=== PATIENT | male | born 1985 | race Caucasian/White ===

== ENCOUNTER 2019-04-20 14:35 | Inpatient (IN) | payer OTHER ==
[2019-04-20 17:36] VITALS: BMI 18.9
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
[2019-04-20] MEDS ORDERED: ACETAMINOPHEN 325 MG TABLET (FP) PO PRN ×2 (19:32)
[2019-04-20] MEDS ORDERED: hydrOXYzine PAMOATE 25 MG CAPSULE (FP) PO PRN (19:32)
[2019-04-20] MEDS ORDERED: METHOCARBAMOL 500 MG TABLET PO PRN (19:32)
[2019-04-20] MEDS ORDERED: IBUPROFEN 400 MG TABLET (FP) PO PRN (19:32)
[2019-04-20] MEDS ORDERED: MAGNESIUM HYDROX 2400MG/30ML ORAL SUSPENSION 30 ML CUP PO PRN (19:32)
[2019-04-20] MEDS ORDERED: MELATONIN 5 MG TABLETS PO PRN (19:32)
[2019-04-20] MEDS ORDERED: BISMUTH SUBSALICYLATE 524 MG/30 ML UD PO PRN (19:32)
[2019-04-20] MEDS ORDERED: MENTHOL/PHENOL 1 EACH UD MM PRN (19:32)
[2019-04-20] MEDS ORDERED: MAG HYDROX/AL HYDROX/SIMETH 30 ML UNIT-DOSE CUP PO PRN (19:32)
[2019-04-20] MEDS ORDERED: MAGNESIUM CITRATE 300 ML BOTTLE PO PRN (19:32)
[2019-04-20] MEDS ORDERED: METHADONE HCL 10 MG TABLET PO ONE (19:35)
[2019-04-20] MEDS: THIAMINE HCL 100 MG TABLET (FP) PO SCH (22:35)
[2019-04-20] MEDS: diazePAM 5 MG TABLET PO SCH (22:35)
[2019-04-21] MEDS: diazePAM 5 MG TABLET PO SCH ×3 (05:40→21:30)
[2019-04-21] MEDS ORDERED: METHADONE HCL 10 MG TABLET PO ONE (09:45)
[2019-04-21] MEDS ORDERED: METHADONE 40 MG, METHADONE 20 MG PO ONE (09:55)
[2019-04-21 10:43] LABS: HEMATOCRIT 35.5 % (35.4-49); HEMOGLOBIN 12.1 GM/dL (11.7-16.9); MCH 31.8 pg (25.7-33.7); MEAN CELL VOLUME 93.3 fl (80-96); MEAN PLT VOLUME 8.7 fl (7.5-11.1); PLATELET COUNT 298 K/MM3 (134-434); RDW 12.4 % (11.9-15.9); WHITE BLOOD COUNT 9.4 K/mm3 (4.0-10.0)
[2019-04-21 10:52] LABS: ALBUMIN 3.3 g/dl (3.4-5.0); BILIRUBIN,TOTAL 0.5 mg/dL (0.2-1); BLOOD UREA NITROGEN 10.4 mg/dL (7-18); CALCIUM 8.6 mg/dL (8.5-10.1); CREATININE 0.8 mg/dL (0.55-1.3); POTASSIUM 4.2 mmol/L (3.5-5.1); TOT PROT 6.1 g/dl (6.4-8.2)
[2019-04-21] MEDS ORDERED: METHADONE HCL 10 MG TABLET ONE (11:05)
[2019-04-21] MEDS: PRENATAL VITAMINS W/ FOLIC ACID TABLET (FP) PO SCH (11:06)
[2019-04-21] MEDS ORDERED: METHADONE HCL 40 MG DISPERSABLE TABLET ONE (11:06)
--- NOTE | 2019-04-21 11:40 | PN ---
S CIWA - CIWA Score Nausea/Vomitin-No Nausea/No Vomiting Muscle Tremors: 4-Moderate,w/Arms Extend Anxiety: 3 Agitation: 3 Paroxysmal Sweats: 3 Orientation: 0-Oriented Tacttile Disturbances: 0-None Auditory Disturbances: 0-None Visual Disturbances: 0-None Headache: 0-None Present CIWA-Ar Total Score: 13 [facility] Progress Note (SOAP) Subjective: sweats shakes tired weak restless anxiety Objective: 04/21/19 11:40 Vital Signs Temperature 97.4 F L 04/21/19 11:03 Pulse Rate 68 04/21/19 11:03 Respiratory Rate 18 04/21/19 11:03 Blood Pressure 106/66 04/21/19 11:03 O2 Sat by Pulse Oximetry (%) Laboratory Tests 04/21/19 04/21/19 08:30 08:30 WBC 9.4 RBC 3.80 L Hgb 12.1 Hct 35.5 MCV 93.3 MCH 31.8 MCHC 34.0 RDW 12.4 Plt Count 298 MPV 8.7 Sodium 139 Potassium 4.2 Chloride 105 Carbon Dioxide 28 Anion Gap 6 L BUN 10.4 Creatinine 0.8 Est GFR (CKD-EPI)AfAm 136.99 Est GFR (CKD-EPI)NonAf 118.20 Random Glucose 72 L Calcium 8.6 Total Bilirubin 0.5 AST 19 ALT 20 Alkaline Phosphatase 95 Total Protein 6.1 L Albumin 3.3 L labs noted aaox3 lying in bed no acute distress Assessment: 04/21/19 11:41 withdrawals Plan: continue detox pt will remain with taking 60mg of his methadone maintenance until he goes back to his program for re-instatement and they will then build him up. pt in agreement as well.
[2019-04-21] MEDS: NICOTINE 21 MG/24 HOURS TOPICAL PATCH TD SCH (12:06)
[2019-04-21] MEDS: NICOTINE POLACRILEX 4 MG GUM BUC PRN ×2 (12:06→21:32)
[2019-04-21] MEDS: THIAMINE HCL 100 MG TABLET (FP) PO SCH (21:31)
[2019-04-22] MEDS ORDERED: METHADONE HCL 10 MG TABLET ONE (05:04)
[2019-04-22] MEDS ORDERED: METHADONE HCL 40 MG DISPERSABLE TABLET ONE (05:04)
[2019-04-22] MEDS: METHADONE 40 MG, METHADONE 20 MG PO SCH (05:46)
[2019-04-22] MEDS: diazePAM 5 MG TABLET PO SCH ×2 (05:46→18:11)
[2019-04-22] MEDS ORDERED: METHADONE HCL 40 MG DISPERSABLE TABLET PO SCH (06:00)
--- NOTE | 2019-04-22 09:09 | PN ---
[facility] CIWA - CIWA Score Nausea/Vomitin-No Nausea/No Vomiting Muscle Tremors: 3 Anxiety: 3 Agitation: 3 Paroxysmal Sweats: 2 Orientation: 0-Oriented Tacttile Disturbances: 0-None Auditory Disturbances: 0-None Visual Disturbances: 0-None Headache: 0-None Present CIWA-Ar Total Score: 11 S Progress Note (SOAP) Subjective: sweats agitation interrupted sleep my right pinki finger is infected Objective: 04/22/19 09:21 Vital Signs Temperature 96.2 F L 04/22/19 06:41 Pulse Rate 67 04/22/19 06:41 Respiratory Rate 18 04/22/19 06:41 Blood Pressure 107/58 L 04/22/19 06:41 O2 Sat by Pulse Oximetry (%) Laboratory Tests 04/21/19 04/21/19 04/21/19 08:30 08:30 08:30 WBC 9.4 RBC 3.80 L Hgb 12.1 Hct 35.5 MCV 93.3 MCH 31.8 MCHC 34.0 RDW 12.4 Plt Count 298 MPV 8.7 Sodium 139 Potassium 4.2 Chloride 105 Carbon Dioxide 28 Anion Gap 6 L BUN 10.4 Creatinine 0.8 Est GFR (CKD-EPI)AfAm 136.99 Est GFR (CKD-EPI)NonAf 118.20 Random Glucose 72 L Calcium 8.6 Total Bilirubin 0.5 AST 19 ALT 20 Alkaline Phosphatase 95 Total Protein 6.1 L Albumin 3.3 L RPR Titer Nonreactive pt is aaox3 ambulating no acute distress Assessment: 04/22/19 09:22 mild withdrawals finger assessed; pinki area near nail bed is swollen, pus like formed under skin noted. Plan: continue detox increase fluids bacitrain oint ordered bactrium ds bid x 7 days ordered encouraged warm compress prn
[2019-04-22] MEDS: SULFAMETHOXAZOLE/TRIMETHOPRIM 800MG/160MG D.S. TABLET PO SCH ×2 (10:44→22:13)
[2019-04-22] MEDS: BACITRACIN 15 GM TUBE TOPICAL OINTMENT TP SCH (10:44)
[2019-04-22] MEDS: PRENATAL VITAMINS W/ FOLIC ACID TABLET (FP) PO SCH (10:44)
[2019-04-22] MEDS: NICOTINE 21 MG/24 HOURS TOPICAL PATCH TD SCH (10:45)
[2019-04-22] MEDS: NICOTINE POLACRILEX 4 MG GUM BUC PRN (10:47)
[2019-04-22] MEDS: THIAMINE HCL 100 MG TABLET (FP) PO SCH (22:13)
[2019-04-22] MEDS: diazePAM 5 MG TABLET PO PRN (22:13)
[2019-04-23] MEDS ORDERED: METHADONE HCL 10 MG TABLET ONE (04:56)
[2019-04-23] MEDS ORDERED: METHADONE HCL 40 MG DISPERSABLE TABLET ONE (04:57)
[2019-04-23] MEDS: METHADONE 40 MG, METHADONE 20 MG PO SCH (05:38)
[2019-04-23] MEDS ORDERED: diazePAM 5 MG TABLET PO ONE (06:00)
[2019-04-23] MEDS: SULFAMETHOXAZOLE/TRIMETHOPRIM 800MG/160MG D.S. TABLET PO SCH (10:30)
[2019-04-23] MEDS: PRENATAL VITAMINS W/ FOLIC ACID TABLET (FP) PO SCH (10:30)
[2019-04-23] MEDS: NICOTINE 21 MG/24 HOURS TOPICAL PATCH TD SCH (10:31)
[2019-04-23] MEDS: BACITRACIN 15 GM TUBE TOPICAL OINTMENT TP SCH (10:31)
[2019-04-23] MEDS: NICOTINE POLACRILEX 4 MG GUM BUC PRN (10:32)
[2019-04-23] MEDS: diazePAM 5 MG TABLET PO PRN (12:16)
[2019-04-23 12:51] VITALS: BP 118/71; PULSE 89; TEMP 99.5
--- NOTE | 2019-04-23 13:15 | PN ---
[facility] Progress Note Note: this morning infected pinki assessed and pt was encouraged to go to our main hospital for further check up or even for MD to ID(khang) the pus forming under skin; however pt refused and states this has happened many times before to me and I just wait and the pus will eventually break through skin. Pt denies of any fever only some pain/discomfort to pinki area. Pt is currently on ABX and encouraged warm compress to area.
--- NOTE | 2019-04-23 13:18 | PN ---
S CIWA - CIWA Score Nausea/Vomitin-No Nausea/No Vomiting Muscle Tremors: 2 Anxiety: 2 Agitation: 2 Paroxysmal Sweats: No Perspiration Orientation: 0-Oriented Tacttile Disturbances: 0-None Auditory Disturbances: 0-None Visual Disturbances: 0-None Headache: 0-None Present CIWA-Ar Total Score: 6 [facility] Progress Note (SOAP) Subjective: agitation sweats pain to pinki right hand Objective: 04/23/19 13:17 Vital Signs Temperature 99.5 F 04/23/19 12:50 Pulse Rate 89 04/23/19 12:50 Respiratory Rate 18 04/23/19 12:50 Blood Pressure 118/71 04/23/19 12:50 O2 Sat by Pulse Oximetry (%) Laboratory Tests 04/21/19 04/21/19 04/21/19 08:30 08:30 08:30 WBC 9.4 RBC 3.80 L Hgb 12.1 Hct 35.5 MCV 93.3 MCH 31.8 MCHC 34.0 RDW 12.4 Plt Count 298 MPV 8.7 Sodium 139 Potassium 4.2 Chloride 105 Carbon Dioxide 28 Anion Gap 6 L BUN 10.4 Creatinine 0.8 Est GFR (CKD-EPI)AfAm 136.99 Est GFR (CKD-EPI)NonAf 118.20 Random Glucose 72 L Calcium 8.6 Total Bilirubin 0.5 AST 19 ALT 20 Alkaline Phosphatase 95 Total Protein 6.1 L Albumin 3.3 L RPR Titer Nonreactive aaox3 ambulating no acute distress Assessment: 04/23/19 13:17 withdrawals Plan: continue detox increase fluids continue with ABX as ordered d/c in am
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
== END 2019-04-23 15:00 | disposition home or self-care (01) | DRG 773 ==
LOC: YASAS 14:35 → Y6N 19:35
PROVIDERS: ADMIT Surgery; ATTEND Surgery
PROC: HZ2ZZZZ Detoxification Services for Substance Abuse Treatment (ICD-10-PCS; principal; 2019-04-20)
DX: F13.230 Sedative, hypnotic or anxiolytic dependence with withdrawal, uncomplicated (principal); F11.20 Opioid dependence, uncomplicated; F43.10 Post-traumatic stress disorder, unspecified; L08.9 Local infection of the skin and subcutaneous tissue, unspecified; Z87.828 Personal history of other (healed) physical injury and trauma; Z91.013 Allergy to seafood
CPT/HCPCS: 36415; 80053; 85027; 86593

== ENCOUNTER 2020-01-25 16:21 | Inpatient (IN) | payer OTHER ==
--- NOTE | 2020-01-25 17:08 | HP ---
COWS - Scale Resting Pulse: 0= [place] 80 or Below Sweatin= Chills/Flushing Restless Observation: 1= Difficult to Sit Still Pupil Size: 1= Pupils >than Normal Bone or Joint Aches: 2= Severe Diffuse Aches Runny Nose/ Eye Tearin= Runny Nose/Eyes GI Upset > 30mins: 2= Nausea/Diarrhea Tremor Observation: 2= Slight Tremor Visible Yawning Observation: 1= 1-2x During Session Anxiety or Irritability: 1=Feels Anxious/Irritable Goose Flesh Skin: 3=Piloerection COWS Score: 16 CIWA Score - Admission Criteria OASAS Guidelines: Admission for Medically Managed Detox: Requires at least one of the followin. CIWA greater than 12 2. Seizures within the past 24 hours 3. Delirium tremens within the past 24 hours 4. Hallucinations within the past 24 hours 5. Acute intervention needed for co occurring medical disorder 6. Acute intervention needed for co occurring psychiatric disorder 7. Severe withdrawal that cannot be handled at a lower level of care (continued vomiting, continued diarrhea, abnormal vital signs) requiring intravenous medication and/or fluids 8. Admitting History and Physical - Past Medical History Pulmonary: Yes: Asthma - Smoking History Smoking history: Current every day smoker Have you smoked in the past 12 months: Yes Aproximately how many cigarettes per day: 40 - Alcohol/Substance Use History of Substance Use: reports: Heroin, Marijuana, Prescription Date of Last Use: 11/29/19 - Social History ADL: Independent Occupation: unemployed History of Recent Travel: No Admission ROS [facility] Chief Complaint: I am going through withdrawal, I dont want to use drugs no more Allergies/Adverse Reactions: Allergies Allergy/AdvReac Type Severity Reaction Status Date / Time Fish Containing Products Allergy Verified 12/05/19 13:18 No Known Drug Allergies Allergy Verified 12/05/19 13:18 shellfish derived Allergy Verified 12/05/19 13:18 seafoods Allergy Unknown Uncoded 12/05/19 13:18 History of Present Illness: 34 year old male with heroine use presents for detox. His last treatment was initiated on 12/01/19 with completion of detox and a few days in rehab. Exam Limitations: No Limitations - Ebola screening Have you had contact with anyone from an Ebola affected area: No Have you been sick,other than usual withdrawal symptoms: No Do you have a fever: No - Review of Systems Constitutional: Chills, Loss of Appetite, Changes in sleep EENT: reports: Blurred Vision, Nose Congestion, Dental Problems Respiratory: reports: No Symptoms reported Cardiac: reports: No Symptoms Reported GI: reports: Nausea, Poor Appetite, Abdominal cramping : reports: No Symptoms Reported Musculoskeletal: reports: Joint Pain, Muscle Pain, Muscle Weakness Neuro: reports: Numbness, Seizure (4 months ago), Tingling, Tremors Endocrine: reports: No Symptoms Reported Hematology: reports: Anemia Psychiatric: reports: Anxious, Depressed, other (PTSD) Other Systems: Reviewed and Negative Patient History - Patient Medical History Hx Anemia: No Hx Asthma: Yes (takes ablbuterol inhaler) Hx Chronic Obstructive Pulmonary Disease (COPD): No Hx Cancer: No Hx Cardiac Disorders: No Hx Congestive Heart Failure: No Hx Hypertension: No Hx Hypercholesterolemia: No Hx Pacemaker: No HX Cerebrovascular Accident: No Hx Seizures: No Hx Dementia: No Hx Diabetes: No Hx Gastrointestinal Disorders: No Hx Liver Disease: No Hx Genitourinary Disorders: No Hx Sexually Transmitted Disorders: No Hx Renal Disease (ESRD): No Hx Thyroid Disease: No Hx Human Immunodeficiency Virus (HIV): No Hx Hepatitis C: No Hx Depression: Yes Hx Suicide Attempt: No Hx Bipolar Disorder: No Hx Schizophrenia: No Other Medical History: PTSD - Patient Surgical History Past Surgical History: Yes Hx Neurologic Surgery: No Hx Cataract Extraction: No Hx Cardiac Surgery: No Hx Lung Surgery: No Hx Breast Surgery: No Hx Breast Biopsy: No Hx Abdominal Surgery: Yes ([facility] 2011) Hx Appendectomy: No Hx Cholecystectomy: No Hx Genitourinary Surgery: No Hx Section: No Hx Orthopedic Surgery: No Anesthesia Reaction: No - PPD History Previous Implant?: Yes Documented Results: Negative w/proof Implanted On Prior [facility] Admission?: Yes Date: 12/03/19 Results: 0 mm. PPD to be Administered?: No - Smoking Cessation Smoking history: Current every day smoker Have you smoked in the past 12 months: Yes Aproximately how many cigarettes per day: 40 Cigars Per Day: 0 Hx Chewing Tobacco Use: No Initiated information on smoking cessation: Yes 'Breaking Loose' booklet given: 01/25/20 - Substance & Tx. History Hx Alcohol Use: No Substance Use Type: Heroin - Substances abused Heroin Substance route: Smoking Frequency: Daily Amount used: 20 bags Age of first use: 23 Date of last use: 01/24/20 Admission Physical Exam [facility] - Physical General Appearance: Yes: Disheveled (unkempt), Irritable, Anxious HEENTM: Yes: Hearing grossly Normal, Normocephalic, Normal Voice Respiratory: Yes: Chest Non-Tender, Lungs Clear, Normal Breath Sounds, No Respiratory Distress, No Accessory Muscle Use Neck: Yes: No masses,lesions,Nodules, Supple Breast: Yes: Breast Exam Deferred Cardiology: Yes: Regular Rhythm, Regular Rate, S1, S2 Abdominal: Yes: Normal Bowel Sounds, Non Tender, Soft, Surgical Scar Genitourinary: Yes: Within Normal Limits Back: Yes: Normal Inspection Musculoskeletal: Yes: Gait Steady, Muscle Pain, Muscle weakness Extremities: Yes: Tremors, Other (tender finger tips, dirty) Neurological: Yes: Alert, Normal Mood/Affect, Normal Response Integumentary: Yes: Clammy, Rash Lymphatic: Yes: Within Normal Limits - Diagnostic (1) Opioid dependence with withdrawal Current Visit: Yes Status: Acute (2) Nicotine dependence Current Visit: Yes Status: Chronic Qualifiers: Nicotine product type: cigarettes Substance use status: uncomplicated Qualified Code(s): F17.210 - Nicotine dependence, cigarettes, uncomplicated Cleared for Admission [facility] - Detox or Rehab [facility] Level of Care: Medically Managed Detox Regimen/Protocol: Methadone Claeared for Rehab Admission: No Breathalyzer - Breathalyzer Breathalyzer: 0 Urine Drug Screen - Test Device Lot number: [id number] Expiration date: 03/29/21 - Control Is test valid?: Yes - Results Drug screen NEGATIVE: No Urine drug screen results: THC-Marijuana, VLADIMIR-Cocaine, AMP-Amphetamines, FEN- Fentanyl, MOP-Opiates, OXY-Oxycodone, MTD-Methadone, MDMA-Ecstasy, BUP-Suboxone Inpatient Rehab Admission - Rehab Decision to Admit Inpatient rehab admission?: No
[2020-01-25] MEDS ORDERED: MAG HYDROX/AL HYDROX/SIMETH 30 ML UNIT-DOSE CUP PO PRN (17:15)
[2020-01-25] MEDS ORDERED: IBUPROFEN 400 MG TABLET (FP) PO PRN (17:15)
[2020-01-25] MEDS ORDERED: NALOXONE HCL 0.4 MG/ML VIAL IM PRN (17:15)
[2020-01-25] MEDS ORDERED: cloNIDine HCL 0.1 MG TABLET PO PRN (17:15)
[2020-01-25] MEDS ORDERED: MENTHOL/PHENOL 1 EACH UD MM PRN (17:15)
[2020-01-25] MEDS ORDERED: MAGNESIUM HYDROX 2400MG/30ML ORAL SUSPENSION 30 ML CUP PO PRN (17:15)
[2020-01-25] MEDS ORDERED: ACETAMINOPHEN 325 MG TABLET (FP) PO PRN ×2 (17:15)
[2020-01-25] MEDS ORDERED: MAGNESIUM CITRATE 300 ML BOTTLE PO PRN (17:15)
[2020-01-25] MEDS ORDERED: BISMUTH SUBSALICYLATE 524 MG/30 ML UD PO PRN (17:15)
[2020-01-25 18:19] VITALS: BMI 20.2
[2020-01-25] MEDS ORDERED: ALBUTEROL SO4 HFA INHALER IH PRN (18:19)
[2020-01-25] MEDS ORDERED: METHADONE HCL 10 MG TABLET (FOR DETOX USE ONLY) PO ONE (18:45)
[2020-01-25] MEDS: NICOTINE POLACRILEX 2 MG GUM BUC PRN (19:31)
[2020-01-25] MEDS ORDERED: MELATONIN 5 MG TABLETS PO SCH (22:00)
[2020-01-25] MEDS: THIAMINE HCL 100 MG TABLET (FP) PO SCH (22:06)
[2020-01-25] MEDS: TOLNAFTATE 1% POWDER 45 GM POW TP SCH (23:42)
[2020-01-26] MEDS: METHOCARBAMOL 500 MG TABLET PO PRN ×2 (00:44→10:14)
[2020-01-26] MEDS ORDERED: METHADONE HCL 5 MG TABLET (FOR DETOX USE ONLY) ONE (09:09)
[2020-01-26] MEDS ORDERED: METHADONE HCL 10 MG TABLET (FOR DETOX USE ONLY) ONE (09:09)
[2020-01-26] MEDS ORDERED: METHADONE (DETOX) 20 MG, METHADONE (DETOX) 5 MG PO ONE (10:00)
[2020-01-26] MEDS: NICOTINE 14 MG/24 HOURS TOPICAL PATCH TD SCH (10:11)
[2020-01-26] MEDS: PRENATAL VITAMINS W/ FOLIC ACID TABLET (FP) PO SCH (10:11)
[2020-01-26] MEDS: NICOTINE POLACRILEX 2 MG GUM BUC PRN ×4 (10:12→22:15)
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
[2020-01-26] MEDS: TOLNAFTATE 1% POWDER 45 GM POW TP SCH ×2 (10:34→22:48)
--- NOTE | 2020-01-26 10:35 | PN ---
[facility] COWS - Scale Resting Pulse: 0= [place] 80 or Below Sweatin= Chills/Flushing Restless Observation: 1= Difficult to Sit Still Pupil Size: 0= Normal to Room Light Bone or Joint Aches: 2= Severe Diffuse Aches Runny Nose/ Eye Tearin= Runny Nose/Eyes GI Upset > 30mins: 1= Stomach Cramp Tremor Observation of Outstretched Hands: 2= Slight Tremor Visible Yawning Observation: 2= >3x During Session Anxiety or Irritability: 2=Irritable/Anxious Goose Flesh Skin: 0=Smooth Skin COWS Score: 13 [facility] Progress Note (SOAP) Subjective: sweats shakes body aches interrupted sleep poor appetite cut to my fingers from doing meth insomnia Objective: 01/26/20 10:32 Vital Signs Temperature 97.8 F 01/26/20 09:10 Pulse Rate 58 L 01/26/20 10:12 Respiratory Rate 18 01/26/20 09:10 Blood Pressure 102/59 L 01/26/20 10:12 O2 Sat by Pulse Oximetry (%) 97 01/26/20 06:10 labs pending aaox3 lying in bed no acute distress Assessment: 01/26/20 10:33 withdrawals fingers assessed; superficial abrasions noted to finger. bacitracin oint ordered Plan: continue detox increase fluids bacitracin ointment ordered ensure plus bid
[2020-01-26 11:34] LABS: HEMATOCRIT 32.5 % (35.4-49); MCH 31.9 pg (25.7-33.7); MCHC 33.7 g/dl (32.0-35.9); MEAN CELL VOLUME 94.4 fl (80-96); MEAN PLT VOLUME 9.5 fl (7.5-11.1); PLATELET COUNT 263 K/MM3 (134-434); RBC 3.44 M/mm3 (4.00-5.60); WHITE BLOOD COUNT 5.5 K/mm3 (4.0-10.0)
[2020-01-26 11:46] LABS: ALBUMIN 3.6 g/dl (3.4-5.0); BILIRUBIN,TOTAL 1.4 mg/dL (0.2-1); BLOOD UREA NITROGEN 11.4 mg/dL (7-18); CALCIUM 8.7 mg/dL (8.5-10.1); CREATININE 0.9 mg/dL (0.55-1.3); TOT PROT 6.4 g/dl (6.4-8.2)
[2020-01-26] MEDS: BACITRACIN 0.9 GM PACKET TP SCH ×2 (12:01→22:12)
[2020-01-26] MEDS: diazePAM 5 MG TABLET PO PRN ×2 (15:32→22:12)
[2020-01-26] MEDS: THIAMINE HCL 100 MG TABLET (FP) PO SCH (22:12)
[2020-01-27] MEDS ORDERED: METHADONE HCL 10 MG TABLET (FOR DETOX USE ONLY) PO ONE (10:00)
[2020-01-27] MEDS: NICOTINE 14 MG/24 HOURS TOPICAL PATCH TD SCH (10:11)
[2020-01-27] MEDS: NICOTINE POLACRILEX 2 MG GUM BUC PRN ×2 (10:11→12:40)
[2020-01-27] MEDS: TOLNAFTATE 1% POWDER 45 GM POW TP SCH ×2 (10:12→22:29)
[2020-01-27] MEDS: PRENATAL VITAMINS W/ FOLIC ACID TABLET (FP) PO SCH (10:12)
[2020-01-27] MEDS: BACITRACIN 0.9 GM PACKET TP SCH ×2 (10:12→22:28)
--- NOTE | 2020-01-27 10:43 | PN ---
BHS COWS - Scale Resting Pulse: 0= [place] 80 or Below Sweatin= Chills/Flushing Restless Observation: 1= Difficult to Sit Still Pupil Size: 0= Normal to Room Light Bone or Joint Aches: 2= Severe Diffuse Aches Runny Nose/ Eye Tearin= Nasal Congestion GI Upset > 30mins: 0= None Tremor Observation of Outstretched Hands: 1= Tremor [place], Not Seen Yawning Observation: 1= 1-2x During Session Anxiety or Irritability: 1=Feels Anxious/Irritable Goose Flesh Skin: 0=Smooth Skin COWS Score: 8 BHS Progress Note (SOAP) Subjective: sweats body aches chills tired interrupted sleep Objective: 01/27/20 10:42 Vital Signs Temperature 97.8 F 01/27/20 05:47 Pulse Rate 58 L 01/27/20 05:47 Respiratory Rate 16 01/27/20 06:24 Blood Pressure 100/58 L 01/27/20 05:47 O2 Sat by Pulse Oximetry (%) 96 01/27/20 05:47 Laboratory Tests 01/26/20 01/26/20 01/26/20 08:15 08:15 08:15 WBC 5.5 RBC 3.44 L Hgb 11.0 L Hct 32.5 L MCV 94.4 MCH 31.9 MCHC 33.7 RDW 12.0 Plt Count 263 MPV 9.5 Sodium 139 Potassium 4.0 Chloride 104 Carbon Dioxide 28 Anion Gap 7 L BUN 11.4 Creatinine 0.9 Est GFR (CKD-EPI)AfAm 130.52 Est GFR (CKD-EPI)NonAf 112.62 Random Glucose 82 Calcium 8.7 Total Bilirubin 1.4 H AST 14 L ALT 18 Alkaline Phosphatase 68 Total Protein 6.4 Albumin 3.6 Syphilis Serology Non-reactive labs noted mildly low H:H noted aaox3 ambulating no acute distress Assessment: 01/27/20 10:50 withdrawals Plan: continue detox iron supplement ordered increase fluids
[2020-01-27] MEDS: FERROUS SO4 325 MG TABLET (FP) PO SCH ×2 (10:59→22:29)
[2020-01-27] MEDS: diazePAM 5 MG TABLET PO PRN ×2 (12:39→17:30)
[2020-01-27] MEDS ORDERED: MASKS NR ONE (19:41)
[2020-01-27] MEDS: THIAMINE HCL 100 MG TABLET (FP) PO SCH (22:29)
[2020-01-28] MEDS: NICOTINE POLACRILEX 2 MG GUM BUC PRN ×3 (08:56→14:53)
[2020-01-28] MEDS ORDERED: METHADONE HCL 5 MG TABLET (FOR DETOX USE ONLY) ONE (09:00)
[2020-01-28] MEDS ORDERED: METHADONE HCL 10 MG TABLET (FOR DETOX USE ONLY) ONE (09:00)
[2020-01-28] MEDS ORDERED: METHADONE (DETOX) 10 MG, METHADONE (DETOX) 5 MG PO ONE (10:00)
[2020-01-28] MEDS: FERROUS SO4 325 MG TABLET (FP) PO SCH ×2 (10:07→21:02)
[2020-01-28] MEDS: BACITRACIN 0.9 GM PACKET TP SCH ×2 (10:07→21:03)
[2020-01-28] MEDS: PRENATAL VITAMINS W/ FOLIC ACID TABLET (FP) PO SCH (10:08)
[2020-01-28] MEDS: TOLNAFTATE 1% POWDER 45 GM POW TP SCH ×2 (10:08→21:04)
[2020-01-28] MEDS: NICOTINE 14 MG/24 HOURS TOPICAL PATCH TD SCH (10:08)
--- NOTE | 2020-01-28 10:25 | PN ---
BHS COWS - Scale Resting Pulse: 0= [place] 80 or Below Sweatin= Chills/Flushing Restless Observation: 1= Difficult to Sit Still Pupil Size: 0= Normal to Room Light Bone or Joint Aches: 1= Mild Discomfort Runny Nose/ Eye Tearin= Nasal Congestion GI Upset > 30mins: 1= Stomach Cramp Tremor Observation of Outstretched Hands: 0= None Yawning Observation: 1= 1-2x During Session Anxiety or Irritability: 1=Feels Anxious/Irritable Goose Flesh Skin: 0=Smooth Skin COWS Score: 7 BHS Progress Note (SOAP) Subjective: stomach cramping sweats chills body aches Objective: 01/28/20 10:24 Vital Signs Temperature 97.9 F 01/28/20 08:44 Pulse Rate 64 01/28/20 08:44 Respiratory Rate 20 01/28/20 08:44 Blood Pressure 108/56 L 01/28/20 08:44 O2 Sat by Pulse Oximetry (%) 96 01/28/20 05:50 aaox3 ambulating no acute distress Assessment: 01/28/20 10:25 withdrawals Plan: continue detox roboxin pnr
[2020-01-28] MEDS: diazePAM 5 MG TABLET PO PRN ×2 (12:34→17:49)
[2020-01-28] MEDS: THIAMINE HCL 100 MG TABLET (FP) PO SCH (21:02)
[2020-01-28] MEDS: SUVOREXANT 10 MG TABLET PO PRN (21:05)
[2020-01-29] MEDS ORDERED: METHADONE HCL 10 MG TABLET (FOR DETOX USE ONLY) PO ONE (10:00)
[2020-01-29] MEDS: BACITRACIN 0.9 GM PACKET TP SCH ×2 (10:21→21:33)
[2020-01-29] MEDS: FERROUS SO4 325 MG TABLET (FP) PO SCH ×2 (10:21→21:33)
[2020-01-29] MEDS: PRENATAL VITAMINS W/ FOLIC ACID TABLET (FP) PO SCH (10:22)
[2020-01-29] MEDS: NICOTINE 14 MG/24 HOURS TOPICAL PATCH TD SCH (10:22)
[2020-01-29] MEDS: TOLNAFTATE 1% POWDER 45 GM POW TP SCH (10:22)
[2020-01-29] MEDS: NICOTINE POLACRILEX 2 MG GUM BUC PRN ×3 (10:24→19:49)
[2020-01-29] MEDS: diazePAM 5 MG TABLET PO PRN (10:25)
--- NOTE | 2020-01-29 11:17 | PN ---
BHS COWS - Scale Resting Pulse: 0= [place] 80 or Below Sweatin= Chills/Flushing Restless Observation: 1= Difficult to Sit Still Pupil Size: 0= Normal to Room Light Bone or Joint Aches: 1= Mild Discomfort Runny Nose/ Eye Tearin= None GI Upset > 30mins: 0= None Tremor Observation of Outstretched Hands: 1= Tremor [place], Not Seen Yawning Observation: 1= 1-2x During Session Anxiety or Irritability: 0= None Goose Flesh Skin: 0=Smooth Skin COWS Score: 5 BHS Progress Note (SOAP) Subjective: irritable sweats chills Objective: 01/29/20 11:17 Vital Signs Temperature 97.3 F L 01/29/20 08:45 Pulse Rate 70 01/29/20 08:45 Respiratory Rate 18 01/29/20 08:45 Blood Pressure 123/61 01/29/20 08:45 O2 Sat by Pulse Oximetry (%) 97 01/29/20 05:57 aaox3 ambulating no acute distress Assessment: 01/29/20 11:17 withdrawals Plan: continue detox d/c in am
[2020-01-29] MEDS: hydrOXYzine PAMOATE 25 MG CAPSULE (FP) PO PRN ×2 (13:22→19:49)
[2020-01-29] MEDS: TOLNAFTATE 1% CREAM 15 GM TUBE TP SCH ×2 (15:14→21:37)
[2020-01-29] MEDS: SUVOREXANT 10 MG TABLET PO PRN (21:33)
[2020-01-29] MEDS: THIAMINE HCL 100 MG TABLET (FP) PO SCH (21:33)
[2020-01-29] MEDS: METHOCARBAMOL 500 MG TABLET PO PRN (21:33)
[2020-01-30] MEDS: NICOTINE POLACRILEX 2 MG GUM BUC PRN ×2 (05:51→12:26)
[2020-01-30] MEDS: hydrOXYzine PAMOATE 25 MG CAPSULE (FP) PO PRN (05:51)
[2020-01-30] MEDS: METHOCARBAMOL 500 MG TABLET PO PRN (05:51)
[2020-01-30] MEDS ORDERED: METHADONE HCL 5 MG TABLET (FOR DETOX USE ONLY) PO ONE (06:00)
[2020-01-30 09:20] VITALS: BP 111/63; PULSE 61; TEMP 97.7
--- NOTE | 2020-01-30 09:59 | PN ---
BHS COWS - Scale Resting Pulse: 0= [place] 80 or Below Sweatin= No chills or Flushing Restless Observation: 0= Sits Still Pupil Size: 0= Normal to Room Light Bone or Joint Aches: 0= None Runny Nose/ Eye Tearin= None GI Upset > 30mins: 0= None Tremor Observation of Outstretched Hands: 0= None Yawning Observation: 0= None Anxiety or Irritability: 1=Feels Anxious/Irritable Goose Flesh Skin: 0=Smooth Skin COWS Score: 1 BHS Progress Note (SOAP) Subjective: alert,no complaint Objective: 01/30/20 09:58 Vital Signs Temperature 97.7 F 01/30/20 08:39 Pulse Rate 61 01/30/20 08:39 Respiratory Rate 17 01/30/20 08:39 Blood Pressure 111/63 01/30/20 08:39 O2 Sat by Pulse Oximetry (%) 96 01/30/20 06:21 Assessment: 01/30/20 09:58 detox completed,no withdrawal symptom Plan: stable for discharge today,follow up with after care program as arrangement [facility]
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
[2020-01-30] MEDS: FERROUS SO4 325 MG TABLET (FP) PO SCH (11:22)
[2020-01-30] MEDS: BACITRACIN 0.9 GM PACKET TP SCH (11:22)
[2020-01-30] MEDS: NICOTINE 14 MG/24 HOURS TOPICAL PATCH TD SCH (11:22)
[2020-01-30] MEDS: TOLNAFTATE 1% CREAM 15 GM TUBE TP SCH (11:23)
[2020-01-30] MEDS: PRENATAL VITAMINS W/ FOLIC ACID TABLET (FP) PO SCH (11:23)
== END 2020-01-30 12:32 | disposition other institution (70) | DRG 773 ==
LOC: YASAS 16:21 → Y6N 18:37
PROVIDERS: ADMIT Allergy & Immunology; ATTEND Allergy & Immunology
PROC: HZ2ZZZZ Detoxification Services for Substance Abuse Treatment (ICD-10-PCS; principal; 2020-01-25)
DX: F11.23 Opioid dependence with withdrawal (principal); F15.20 Other stimulant dependence, uncomplicated; F12.20 Cannabis dependence, uncomplicated; F17.210 Nicotine dependence, cigarettes, uncomplicated; F19.280 Other psychoactive substance dependence with psychoactive substance-induced anxiety disorder; F19.282 Other psychoactive substance dependence with psychoactive substance-induced sleep disorder; F19.24 Other psychoactive substance dependence with psychoactive substance-induced mood disorder; F43.10 Post-traumatic stress disorder, unspecified; G47.00 Insomnia, unspecified; J45.909 Unspecified asthma, uncomplicated; Z62.810 Personal history of physical and sexual abuse in childhood; Z91.410 Personal history of adult physical and sexual abuse; Z87.828 Personal history of other (healed) physical injury and trauma; Z91.018 Allergy to other foods; Z56.0 Unemployment, unspecified; Z59.0 Homelessness; Z91.19 Patient's noncompliance with other medical treatment and regimen
CPT/HCPCS: 36415; 80053; 85027; 86780; J0735; U0003

== ENCOUNTER 2020-01-30 12:39 | Inpatient (IN) | payer OTHER ==
[2020-01-30] MEDS ORDERED: ACETAMINOPHEN 325 MG TABLET (FP) PO PRN (13:13)
[2020-01-30] MEDS ORDERED: MAGNESIUM HYDROX 2400MG/30ML ORAL SUSPENSION 30 ML CUP PO PRN (13:13)
[2020-01-30] MEDS ORDERED: MENTHOL/PHENOL 1 EACH UD MM PRN (13:13)
[2020-01-30] MEDS ORDERED: IBUPROFEN 400 MG TABLET (FP) PO PRN (13:13)
[2020-01-30] MEDS ORDERED: guaiFENesin 200 MG/10 ML 10 ML UNIT-DOSE CUPS PO PRN (13:13)
[2020-01-30] MEDS ORDERED: MAGNESIUM CITRATE 300 ML BOTTLE PO PRN (13:13)
[2020-01-30] MEDS ORDERED: LOPERAMIDE HCL 2 MG CAPSULE PO PRN (13:13)
[2020-01-30] MEDS ORDERED: P-EPHED 60MG/TRIPROLIDI 2.5MG TABLET PO PRN (13:13)
[2020-01-30] MEDS ORDERED: MAG HYDROX/AL HYDROX/SIMETH 30 ML UNIT-DOSE CUP PO PRN (13:13)
--- NOTE | 2020-01-30 13:13 | HP ---
[facility] Rehab Assess/Revision - Admission History Admitted to Rehab from: [facility] Date of Admission to Rehab: 01/30/2020 - Vital signs Vital Signs: Vital Signs Period Temp Pulse Resp BP Sys/Rocha Pulse Ox Last 24 Hr 98.3 F 80 18 113/63 - Findings Detox History & Physical reviewed: Yes Concur with findings: Yes Comments/Additional Findings: for rehab as protocol Inpatient Rehab Admission - Rehab Decision to Admit Inpatient rehab admission?: Yes - Initial Determination Are CD services needed?: Yes Free of communicable disease: Yes Not in need of hospitalization: Yes - Rehab Admission Criteria Previous failed treatment: Yes Poor recovery environment: Yes Comorbidities: Yes Lacks judgement: No Patient is meeting Inpatient Rehab admission criteria:: Yes
[2020-01-30] MEDS ORDERED: ALBUTEROL SO4 HFA INHALER IH PRN (13:15)
[2020-01-30] MEDS ORDERED: cloNIDine HCL 0.1 MG TABLET PO ONE (13:18)
[2020-01-30] MEDS: METHOCARBAMOL 500 MG TABLET PO PRN ×2 (13:58→19:05)
[2020-01-30] MEDS: NICOTINE POLACRILEX 2 MG GUM BUC PRN ×2 (13:59→17:51)
[2020-01-30] MEDS ORDERED: hydrOXYzine PAMOATE 25 MG CAPSULE (FP) PO SCH (14:00)
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
[2020-01-30] MEDS: hydrOXYzine PAMOATE 50 MG CAPSULE (FP) PO PRN ×2 (15:02→18:29)
[2020-01-30] MEDS: cloNIDine HCL 0.1 MG TABLET PO SCH (21:13)
[2020-01-30] MEDS ORDERED: SUVOREXANT 10 MG TABLET PO PRN (22:00)
[2020-01-30] MEDS ORDERED: THIAMINE HCL 100 MG TABLET (FP) PO SCH (22:00)
[2020-01-30] MEDS ORDERED: MELATONIN 5 MG TABLETS PO SCH (22:00)
[2020-01-31] MEDS: hydrOXYzine PAMOATE 50 MG CAPSULE (FP) PO PRN ×4 (03:38→13:35)
[2020-01-31] MEDS: METHOCARBAMOL 500 MG TABLET PO PRN ×3 (07:20→13:34)
[2020-01-31] MEDS: NICOTINE POLACRILEX 2 MG GUM BUC PRN ×2 (07:21→13:35)
[2020-01-31] MEDS: cloNIDine HCL 0.1 MG TABLET PO SCH (09:04)
[2020-01-31 09:25] VITALS: BP 108/68; PULSE 69; TEMP 97.5
[2020-01-31] MEDS ORDERED: NICOTINE 21 MG/24 HOURS TOPICAL PATCH TD SCH (10:00)
[2020-01-31] MEDS ORDERED: FERROUS SO4 325 MG TABLET (FP) PO SCH (10:00)
[2020-01-31] MEDS ORDERED: PRENATAL VITAMINS W/ FOLIC ACID TABLET (FP) PO SCH (10:00)
--- NOTE | 2020-01-31 15:25 | PN ---
Psychiatric Progress Note Vital Signs: Vital Signs Period Temp Pulse Resp BP Sys/Rocha Pulse Ox Last 24 Hr 97.5 F-98.2 F 53-90 16-18 94-118/64-68 96-98 Date of Session: 01/31/20 Chief Complaint:: " I need some methadone. Otherwise I leave this program." HPI: Day 2 of rehabilitation after completion of detoxification at [address] [place] [address]. Uneventful hospital course until the patient approached nurse with complaints onf anxiety + joint pain and requested " methadone or suboxone." Mr Green has also declared that he will [facility] if his request for methadone is not addressed. ROS: Patient is alert, fully oriented and ambulatory. Complaints : muscular pain and insomnia. Current Medications: Active Medications Generic Name Dose Route Start Last Admin Trade Name Freq PRN Reason Stop Dose Admin Acetaminophen 650 mg 01/30/20 13:13 Tylenol - PO Q4H PRN FEVER Al Hydroxide/Mg Hydroxide 30 ml 01/30/20 13:13 Mylanta Oral Suspension - PO Q6H PRN DYSPEPSIA Albuterol Sulfate 2 puff 01/30/20 13:15 Ventolin Hfa Inhaler - IH Q4H PRN ASTHMA Clonidine 0.1 mg 01/30/20 22:00 01/31/20 09:04 Catapres - PO 0.1 mg BID CORTEZ Administration Eucalyptus/Menthol/Phenol/Sorbitol 1 each 01/30/20 13:13 Cepastat Lozenge - MM Q4H PRN SORE THROAT Ferrous Sulfate 325 mg 01/31/20 10:00 01/31/20 09:04 Feosol - PO 325 mg DAILY CORTEZ Administration Guaifenesin 10 ml 01/30/20 13:13 Robitussin - PO Q6H PRN COUGH Hydroxyzine Pamoate 50 mg 01/30/20 14:50 01/31/20 13:35 Vistaril - PO 50 mg Q4H PRN Administration ANXIETY Ibuprofen 400 mg 01/30/20 13:13 01/30/20 15:02 Motrin - PO 400 mg Q6H PRN Administration Pain Level 4-6 Loperamide HCl 4 mg 01/30/20 13:13 Imodium - PO Q6H PRN DIARRHEA Magnesium Citrate 300 ml 01/30/20 13:13 Citroma - PO Q48H PRN CONSTIPATION Magnesium Hydroxide 30 ml 01/30/20 13:13 Milk Of Magnesia - PO DAILY PRN CONSTIPATION Melatonin 5 mg 01/30/20 22:00 01/30/20 21:12 Melatonin PO 5 mg HS CORTEZ Administration Methocarbamol 500 mg 01/30/20 13:16 01/31/20 13:34 Robaxin - PO 500 mg QID PRN Administration MUSCLE SPASMS Nicotine 21 mg 01/31/20 10:00 01/31/20 09:04 Nicoderm Patch - TD 21 mg DAILY CORTEZ Administration Nicotine Polacrilex 2 mg 01/30/20 13:13 01/31/20 13:35 Nicorette Gum - BUC 2 mg Q2H PRN Administration NICOTINE REPLACEMENT RX Multivit/Folic Acid/Iron 1 tab 01/31/20 10:00 01/31/20 09:04 Vitamins (Sjr) - PO 1 tab DAILY CORTEZ Administration Pseudoephedrine/Triprolidine 1 combo 01/30/20 13:13 Actifed - PO TID PRN NASAL CONGESTION Suvorexant 10 mg 01/30/20 22:00 01/30/20 21:12 Belsomra PO 02/02/20 21:59 10 mg HS PRN Administration INSOMNIA Thiamine HCl 100 mg 01/30/20 22:00 01/30/20 21:12 Vitamin B1 - PO 100 mg HS CORTEZ Administration Medication(s) Change(s): Insomnia is addressed with trazodone 100 mg po hs (in addition to suvorexant). Clonidine is already in place for management of residual opioid withdrawal (suspected). Side effects/benefits of both drugs are discussed with the patient. Mr Green expresses his agreement with this plan of care. [place] his informed consent to . Current Side Effect: No Lab tests ordered: No Lab tests reviewed: Yes Provider note:: Chart reviewed. Case presented by nurse on duty, Nabeel. Senior Analytical Chemist met with the patient. Psychiatric evaluation done. Mr Green is found at the station, in civilian clothes, ready to leave the unit. He agrees to talk to psychiatrist. Patient states that " unless I get methadone or suboxone now, I will not stay. I rather go home and be with my friends." Complaints (insomnia + joint pain) are validated and plan of treatment discussed (medical consult prior to suboxone induction + continuation of clonidine + trazodone at bedtime). Patient is also offered option of anticonvulsant/SSRI medications to address chronic anxiety/mood dysregulation. Mr Green declines. Patient is observed as neatly groomed, fully ambulatory (steady gait), alert/oriented to three spheres, cooperative and well controlled. He denies hallucinations. No delusion elicited. Thought processes are coherent, goal-directed, logical and relevant. Patient denies suicidal/homicidal ideation, intent or plan at time of this examination. Mood is stable. Mental status is at baseline. See MSE report for details. Mr Green retracted his decision to leave. He agree to pursue his treatment at [facility]. Total face to face time:: 35 Mental Status Exam - Mental Status Exam Alert and Oriented to: Time, Place, Person Cognitive Function: Good Patient Appearance: Well Groomed Mood: Anxious (mildly), Hopeful Affect: Appropriate, Normal Range Patient Behavior: Appropriate, Cooperative Speech Pattern: Clear, Appropriate Voice Loudness: Normal Thought Process: Intact, Goal Oriented Thought Disorder: Not Present Hallucinations: Denies Suicidal Ideation: Denies Homicidal Ideation: Denies Insight/Judgement: Fair Sleep: Poorly, Difficulty falling asleep Appetite: Good Gait/Station: Normal Psychiatric Treatment Plan - Problem List (1) Opioid dependence Current Visit: Yes Comment: . (2) Cannabis dependence Current Visit: Yes Comment: . (3) Methamphetamine dependence Current Visit: Yes Comment: . (4) Nicotine dependence Current Visit: Yes Qualifiers: Nicotine product type: cigarettes Substance use status: uncomplicated Qualified Code(s): F17.210 - Nicotine dependence, cigarettes, uncomplicated Comment: . (5) Substance induced mood disorder Current Visit: Yes Comment: . (6) History of posttraumatic stress disorder (PTSD) Current Visit: Yes Comment: . (7) Insomnia Current Visit: Yes Comment: . (8) Non-compliance Current Visit: Yes Comment: . Chronic non-adherence to aftercare follow-up.
[2020-01-31] MEDS ORDERED: cloNIDine HCL 0.1 MG TABLET PO ONE (16:15)
--- NOTE | 2020-01-31 16:28 | PN ---
[facility] Progress Note Note: patient is having withdrawal Vital Signs Temperature 97.5 F L 01/31/20 08:37 Pulse Rate 69 01/31/20 08:37 Respiratory Rate 18 01/31/20 08:37 Blood Pressure 108/68 01/31/20 08:37 O2 Sat by Pulse Oximetry (%) 96 01/31/20 15:14 will give clonidine 0.1 mg po qid for withdrawal robaxin 500 mgs po qid for muscle spasm patient is interested in MAT Dr Salas evaluation appreciated patent will be evaluated for MAT on Sun02/02/2020
[2020-01-31] MEDS ORDERED: METHOCARBAMOL 500 MG TABLET PO SCH (18:00)
[2020-01-31] MEDS ORDERED: cloNIDine HCL 0.1 MG TABLET PO SCH (18:00)
[2020-01-31] MEDS ORDERED: traZODone HCL 50 MG TABLET (FP) PO SCH (22:00)
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
== END 2020-01-31 16:10 | disposition left against medical advice (07) | DRG 770 ==
LOC: YASAS 12:39 → Y3W 12:40
PROVIDERS: ADMIT Allergy & Immunology; ATTEND Allergy & Immunology
PROC: HZ42ZZZ Group Counseling for Substance Abuse Treatment, Cognitive-Behavioral (ICD-10-PCS; principal; 2020-01-30)
DX: F11.20 Opioid dependence, uncomplicated (principal); F15.20 Other stimulant dependence, uncomplicated; F12.20 Cannabis dependence, uncomplicated; F17.210 Nicotine dependence, cigarettes, uncomplicated; F19.280 Other psychoactive substance dependence with psychoactive substance-induced anxiety disorder; F19.282 Other psychoactive substance dependence with psychoactive substance-induced sleep disorder; F19.24 Other psychoactive substance dependence with psychoactive substance-induced mood disorder; F43.10 Post-traumatic stress disorder, unspecified; J45.909 Unspecified asthma, uncomplicated; G47.00 Insomnia, unspecified; Z62.810 Personal history of physical and sexual abuse in childhood; Z87.828 Personal history of other (healed) physical injury and trauma; Z56.0 Unemployment, unspecified; Z59.0 Homelessness; Z91.018 Allergy to other foods
CPT/HCPCS: J0735